=== PATIENT | male | born 1975 | race Caucasian/White ===

== ENCOUNTER 2020-04-30 13:15 | Emergency (ER) | payer MEDICAID ==
[~2020-04-30] VITALS: Ht 175.3 cm; Wt 84.1 kg
--- NOTE | 2020-04-30 13:42 | NUR ---
AZAR FREY. PT WAS SHOPPING TODAY WHEN HE HAD A SUDDEN EPISODE OF DIZZINESS AND HAD A SEIZURE. PT HAS HX OF ETOH ABUSE AND HAS NOT HAD A DRINK IN 24 HRS. STATES HE DRINKS "ABOUT 4 TALL BOYS A DAY". PT HAS HAD ONE SEIZURE THE PAST BUT WAS NOT PRESCRIBED MEDICINE. PT AOX4, AMBULATORY AND MOVES ALL EXTREMITIES. PMH HIV. PLACED SEIZURE PADS ON ER RENATO, PLACED PT ON ENTRY ANALYST, EKG OBTAINED. WILL CONTINUE TO MONITOR PT.
[2020-04-30] MEDS ORDERED: LORazepam 2 MG/ML, 1ML ONE (13:57)
[2020-04-30] MEDS ORDERED: LORazepam 2 MG/ML, 1ML IVPush ONE (14:00)
[2020-04-30] MEDS ORDERED: SODIUM CHLORIDE FLUSH 10ML SYR IVF ONE (14:00)
[2020-04-30 14:10] LABS: BASOPHILS # (AUTO) 0.03 x10^3/uL (0-0.1); BASOPHILS % (AUTO) 0 % (0-1); EOSINOPHILS # (AUTO) 0.03 x10^3/uL (0-0.4); EOSINOPHILS % (AUTO) 0 % (1-7); LYMPHOCYTES # (AUTO) 1.62 x10^3/uL (1-3.4); LYMPHOCYTES % (AUTO) 21 % (22-44); MD NO; MEAN CORPUSCULAR HEMOGLOBIN 32.8 pg (27.5-34.5); MEAN CORPUSCULAR HGB CONC 33.7 g/dL (33.2-36.2); MEAN CORPUSCULAR VOLUME 97.3 fL (81-97); MEAN PLATELET VOLUME 8.6 fL (7.4-10.4); MONOCYTES # (AUTO) 0.45 x10^3/uL (0.2-0.8); MONOCYTES % (AUTO) 6 % (2-9); NEUTROPHILS # (AUTO) 5.55 x10^3/uL (1.8-6.8); NEUTROPHILS % (AUTO) 72 % (42-75); PLATELET COUNT 235 x10^3/uL (130-400); RED BLOOD COUNT 5.14 x10^6/uL (4.38-5.82); RED CELL DISTRIBUTION WIDTH 13.1 % (9.4-14.8)
[2020-04-30 14:16] LABS: ALANINE AMINOTRANSFERASE 37 U/L (12-78); ALBUMIN 3.5 g/dL (3.4-5.0); ANION GAP 8 mmol/L (5-15); CALCIUM 8.8 mg/dL (8.5-10.1); CHLORIDE 108 mmol/L (98-107); CREATININE 1.33 mg/dL (0.7-1.3)
[2020-04-30 14:18] LABS: ALKALINE PHOSPHATASE 63 U/L (45-117); BILIRUBIN,TOTAL 0.6 mg/dL (0.2-1.0)
[2020-04-30 14:19] LABS: AMPHETAMINE SCREEN, URINE Negative (Negative); BARBITURATE SCREEN, URINE Negative (Negative); BENZODIAZEPINE SCREEN, URINE Negative (Negative); CANNABINOID SCREEN, URINE Positive (Negative); COCAINE SCREEN, URINE Negative (Negative); METHADONE SCREEN, URINE Negative (Negative); OPIATE SCREEN, URINE Negative (Negative)
--- NOTE | 2020-04-30 15:28 | NUR ---
RECEIVED REPORT FROM AMRIA ESTHER UNDERWOOD. ASSUMING CARE AT THIS TIME. ALL RESULTS ARE BACK AT THIS TIME. CHART UP FOR RECHECK.
[2020-04-30 15:41] VITALS: BP 111/76
--- NOTE | 2020-04-30 15:42 | NUR ---
PT RESTING COMFORTABLY ON GURNEY. RL.
== END 2020-04-30 16:11 | disposition home or self-care (01) ==
LOC: ED 13:32
DX: R56.9 Unspecified convulsions (principal); F10.239 Alcohol dependence with withdrawal, unspecified; R55 Syncope and collapse; R94.31 Abnormal electrocardiogram [ECG] [EKG]; R51 Headache; Z21 Asymptomatic human immunodeficiency virus [HIV] infection status; F17.210 Nicotine dependence, cigarettes, uncomplicated; Y90.9 Presence of alcohol in blood, level not specified
CPT/HCPCS: 36415; 70450; 80053; 80307; 85025; 93005; 96374; 99285; J2060